=== PATIENT | male | born 1960 | race Caucasian/White ===

== ENCOUNTER 2017-06-14 13:18 | Emergency (ER) | payer OTHER ==
[~2017-06-14] VITALS: Ht 177.8 cm; Wt 90.7 kg
[~2017-06-14 13:18] MED LIST: ACETAMINOPHEN PO; ACETAMINOPHEN650 M3 PO; ALDACTONE PO; AMBIEN PO; AMIODARONE PO; ASPIRIN81 M2 PO; ASPIRINEC PO; BETAPACE PO; COLACE PO; COMBIVENT INH14.7 GM INH; CORDARONE200 M1 PO; COUMADIN PO; DIOVAN PO; FLOVENT HFA12 GM INH; KCL PO; LANOXIN PO; LASIX PO; LEVAQUIN PO; LISINOPRIL PO; LOPRESSOR PO; LORTAB 5/500 TA1 TA1 PO; METFORMIN HCL500 M1 PO; OTC STOOL SOFTNER; PACERONE PO; PERCOCET5/325 PO; PREVACID15 MG PO; PRILOSEC PO; SYNTHROID PO
[2017-06-14 14:06] LABS: BASOPHIL# 0.1 X10e3 (0-0.3); BASOPHIL% 0.7 % (0-2.5); EOSINOPHIL# 0.1 X10e3 (0-0.7); EOSINOPHIL% 0.6 % (0.0-7.0); HEMATOCRIT 47.7 % (38.0-50.0); LYMPHOCYTE# 1.7 X10e3 (1.0-3.5); LYMPHOCYTE% 22.2 % (17.0-45.0); MEAN CELL VOLUME 94.7 FL (83-96); MEAN CORPUSCULAR HEMOGLOBIN 31.8 PG (28-34); MEAN CORPUSCULAR HGB CONC 33.6 g/dL (30-36); MEAN PLATELET VOLUME 9.4 FL (6.5-11.5); MONOCYTE# 0.6 X10e3 (0-1.0); NEUTROPHIL# 5.4 X10e3 (1.5-7.1); NEUTROPHIL% 68.5 % (40-75); PLATELET COUNT 183 X10e3 (140-420); RED BLOOD COUNT 5.04 X10e (3.90-5.60); RED CELL DISTRIBUTION WIDTH 13.6 % (11.0-15.5); WHITE BLOOD COUNT 7.8 X10e3 (4.0-10.5)
[2017-06-14 14:14] LABS: DIFF IND NO
[2017-06-14 14:23] LABS: PARTIAL THROMBOPLASTIN TIME 51.2 SECONDS (23.5-31.3); PROTHROMBIN TIME (PATIENT) 49.3 SECONDS (10.0-11.7)
[2017-06-14 14:49] LABS: INR 4.5
== END 2017-06-14 15:15 | disposition home or self-care (01) ==
LOC: CED 13:18 → CFTX 13:18
PROVIDERS: Physician Assistant
DX: S61.412A Laceration without foreign body of left hand, initial encounter (principal); E11.9 Type 2 diabetes mellitus without complications; Z88.0 Allergy status to penicillin; W26.0XXA Contact with knife, initial encounter; Y92.009 Unspecified place in unspecified non-institutional (private) residence as the place of occurrence of the external cause; Z23 Encounter for immunization; R79.1 Abnormal coagulation profile
CPT/HCPCS: 29125; 36415; 85025; 85610; 85730; 90471; 90715; 99283